=== PATIENT | male | born 1970 | race Asian ===

== ENCOUNTER 2018-01-22 10:52 | Outpatient (CLI) | payer OTHER | END 2018-01-22 10:53 | disposition home or self-care (01) | LOC: SC 10:52 | PROVIDERS: ATTEND Internal Medicine Pulmonary Disease | DX: G47.33 Obstructive sleep apnea (adult) (pediatric) (principal) | CPT/HCPCS: 99203; 99212 ==

== ENCOUNTER 2018-03-07 07:08 | Outpatient (CLI) | payer OTHER | END 2018-03-07 07:09 | disposition home or self-care (01) | LOC: SC 07:08 | PROVIDERS: ATTEND Internal Medicine Pulmonary Disease | DX: G47.33 Obstructive sleep apnea (adult) (pediatric) (principal) | CPT/HCPCS: 95810 ==

== ENCOUNTER 2018-03-14 14:01 | Outpatient (CLI) | payer OTHER | END 2018-03-14 14:02 | disposition home or self-care (01) | LOC: SC 14:01 | PROVIDERS: ATTEND Nurse Practitioner Family | DX: G47.33 Obstructive sleep apnea (adult) (pediatric) (principal) | CPT/HCPCS: 99212; 99214 ==

== ENCOUNTER 2018-05-02 08:15 | Outpatient (CLI) | payer OTHER | END 2018-05-02 08:16 | disposition home or self-care (01) | LOC: SC 08:15 | PROVIDERS: ATTEND Nurse Practitioner Family | DX: G47.33 Obstructive sleep apnea (adult) (pediatric) (principal) | CPT/HCPCS: 99212; 99214 ==